=== PATIENT | female | born 2000 | race African-American/Black ===

== ENCOUNTER 2018-12-15 04:46 | Emergency (ER) | payer OTHER, SELFPAY ==
[~2018-12-15] VITALS: Ht 165.1 cm; Wt 96.2 kg
[~2018-12-15 04:46] MED LIST: KEFLEX500 MG ORAL
--- NOTE | 2018-12-15 04:50 | NUR ---
CALLED TRIAGE; NOT IN THE WAITING ROOM
[2018-12-15] MEDS ORDERED: NKM (05:01)
[2018-12-15 05:15] VITALS: BP 125/77
--- NOTE | 2018-12-15 05:15 | NUR ---
ED Nurse Note: pt walked in c/o object in vaginal area and pain, pt reports she works at [employer] and had to put make up sponges in vaginal area to stop period, now unable to take it out. pelvic exam tray set up, will wait for further orders.
[2018-12-15 05:30] VITALS: BP 125/77
--- NOTE | 2018-12-15 05:30 | NUR ---
ER DISCHARGE NOTE: Patient is cleared to be discharged per ERMD, pt is aox4, on room air, with stable vital signs. pt was given dc and prescription instructions, pt was able to verbalize understanding, pt id band REMOVED. pt is able to ambulate with steady gait. pt took all belongings.
--- NOTE | 2018-12-15 07:14 | Emergency Room Report ---
History of Present Illness General Chief Complaint: Vaginal Source: Patient Present Illness HPI 18-year-old female presents ED for evaluation. Patient complaining of foreign body in vagina. States that she stuck makeup sponges in there last night and is unable to get them out. States she has done this previously. States she is on her period. Denies any pain. Denies any discharge. Denies any fevers or chills. No other aggravating relieving factors. Denies any other associated symptoms Allergies: Coded Allergies: NIACIN (Verified Allergy, Unknown, 12/15/18) Patient History Past Medical History: asthma Past Surgical History: none Pertinent Family History: none Social History: Denies: smoking, alcohol use, drug use Last Menstrual Period: 12/14/18 Now: No Immunizations: UTD Reviewed Nursing Documentation: PMH: Agreed; PSxH: Agreed Nursing Documentation-PMH Past Medical History: No History, Except For Hx Asthma: Yes Review of Systems All Other Systems: negative except mentioned in HPI Physical Exam Vital Signs Date Time Temp Pulse Resp B/P (MAP) Pulse Ox O2 Delivery O2 Flow Rate FiO2 12/15/18 04:56 98.1 115 22 98 Room Air 12/15/18 05:15 125/77 Sp02 EP Interpretation: reviewed, normal General Appearance: no apparent distress, alert, GCS 15, non-toxic Head: normocephalic, atraumatic Eyes: bilateral eye normal inspection, bilateral eye PERRL ENT: hearing grossly normal, normal pharynx, no angioedema, normal voice Neck: full range of motion, supple/symm/no masses Respiratory: chest non-tender, lungs clear, normal breath sounds, speaking full sentences Cardiovascular #1: regular rate, rhythm, no edema Cardiovascular #2: 2+ carotid (R), 2+ carotid (L), 2+ radial (R), 2+ radial (L) , 2+ dorsalis pedis (R), 2+ dorsalis pedis (L) Gastrointestinal: normal bowel sounds, non tender, soft, non-distended, no guarding, no rebound Rectal: deferred Genitourinary: no CVA tenderness, other - helmet binder present - 3 sponges in the cervical canal Musculoskeletal: back normal, gait/station normal, normal range of motion, non- tender Neurologic: alert, oriented x3, responsive, motor strength/tone normal, sensory intact, speech normal Psychiatric: judgement/insight normal, memory normal, mood/affect normal, no suicidal/homicidal ideation Reflexes: 3+ bicep (R), 3+ bicep (L), 3+ tricep (R), 3+ tricep (L), 3+ knee (R) , 3+ knee (L) Skin: normal color, no rash, warm/dry, well hydrated Lymphatic: no adenopathy Procedures Additional Procedure Procedure Narrative Patient placed in supine position. Legs in stirrups. Airport Manager at bedside. Using sterile speculum I was able to identify the foreign bodies. Using sterile forceps I was able to grab and retrieve the foreign bodies. Patient tolerated procedure without complication Medical Decision Making Diagnostic Impression: Primary Impression: Foreign body in vagina Qualified Codes: T19.2XXA - Foreign body in vulva and vagina, initial encounter ER Course 18year-old female presents ED complaining of retained makeup sponges in vagina Differential-foreign body, cellulitis, abscess Patient placed on stretcher. After initial history, patient placed in supine position. Legs in stirrups. Airport Manager at bedside. Sterile speculum we are able to identify the foreign bodies. Using sterile forceps I was able to retrieve the foreign bodies without complication. Discussed findings with patient afterwards. 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 Patient is afebrile, nontoxic appearing Diagnosis- foreign body in vagina Stable discharged to home. Followup with OBGYN. Return to ED if symptoms recur or worsen Last Vital Signs Date Time Temp Pulse Resp B/P (MAP) Pulse Ox O2 Delivery O2 Flow Rate FiO2 12/15/18 05:30 98.1 110 22 125/77 98 Room Air Status: improved Disposition: HOME, SELF-CARE Condition: Stable Referrals: [facility] Patient Instructions: Vaginal Foreign Body, [id number] uMstapha Reno MD December 15, 2018 07:14
== END 2018-12-15 06:00 | disposition home or self-care (01) ==
LOC: EMR 05:30
DX: T19.2XXA Foreign body in vulva and vagina, initial encounter (principal); Z88.8 Allergy status to other drugs, medicaments and biological substances; X58.XXXA Exposure to other specified factors, initial encounter; Y92.9 Unspecified place or not applicable
CPT/HCPCS: 99283

== ENCOUNTER 2019-05-05 21:59 | Emergency (ER) | payer OTHER ==
[~2019-05-05] VITALS: Ht 165.1 cm; Wt 93.9 kg
[~2019-05-05 21:59] MED LIST changes: +NKM
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
--- NOTE | 2019-05-05 23:05 | NUR ---
ED Nurse Note: URINE COLLECTED; SENT DOWN TO LAB.
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
--- NOTE | 2019-05-05 23:17 | NUR ---
ED Nurse Note: PT DOWN TO CT.
[2019-05-05 23:18] VITALS: BP 106/64
--- NOTE | 2019-05-05 23:45 | NUR ---
ED Nurse Note: pt back from ct
--- NOTE | 2019-05-06 00:09 | Diagnostic Imaging Report ---
Indication: Headache Technique: Contiguous 5 mm thick transaxial imaging of the head obtained in a Siemens Sensation [address] scanner. Soft tissue and bone windows generated. Automatic Exposure Control was utilized. Total Dose length Product (DLP): [address] Dose Index Volume (CTDIvol): 60 mGy Comparison: none Findings: The size and configuration of the cortical sulci, basal cisterns, and ventricles are within normal limits for age. There is no mass effect, midline shift, or edema identified. There is no evidence of acute hemorrhage or abnormal intra-axial or extra-axial fluid collections. The bones and soft tissues are unremarkable. Impression: No mass effect, edema or acute bleed. [facility] has communicated the preliminary results to the Emergency Department. Their findings are largely concordant with this report. The CT scanner at [facility] is accredited by the [employer] and the scans are performed using dose optimization techniques as appropriate to a performed exam including Automatic Exposure control.
[2019-05-06] MEDS ORDERED: IBUPROFEN600 MG ORAL (00:36)
[2019-05-06 00:45] VITALS: BP 106/64
--- NOTE | 2019-05-06 00:45 | NUR ---
ER DISCHARGE NOTE: Patient is cleared to be discharged per ERMD, pt is aox4, on room air, with stable vital signs. pt was given dc and prescription instructions, pt was able to verbalize understanding, pt id band removed. pt is able to ambulate with steady gait. pt took all belongings.
== END 2019-05-06 00:45 | disposition home or self-care (01) ==
LOC: EMR 22:33
DX: S00.93XA Contusion of unspecified part of head, initial encounter (principal); J45.909 Unspecified asthma, uncomplicated; Z88.8 Allergy status to other drugs, medicaments and biological substances; Z96.649 Presence of unspecified artificial hip joint; V49.9XXA Car occupant (driver) (passenger) injured in unspecified traffic accident, initial encounter; Y92.410 Unspecified street and highway as the place of occurrence of the external cause
CPT/HCPCS: 70450; 81025; Z7502; 99284